=== PATIENT | female | born 1980 | race African-American/Black ===

== ENCOUNTER 2018-01-12 16:14 | Emergency (ER) | payer SELFPAY | END 2018-01-12 16:51 | disposition home or self-care (01) | LOC: EDSEX 16:14 → NAV ERS 16:14 | DX: R51 Headache (principal); E11.9 Type 2 diabetes mellitus without complications; K21.9 Gastro-esophageal reflux disease without esophagitis; I10 Essential (primary) hypertension; F17.210 Nicotine dependence, cigarettes, uncomplicated; Z79.899 Other long term (current) drug therapy; Z79.84 Long term (current) use of oral hypoglycemic drugs | CPT/HCPCS: 99283 ==